=== PATIENT | male | born 1985 | race Caucasian/White ===

== ENCOUNTER 2016-12-03 16:32 | Emergency (ER) | payer MEDICAID ==
--- NOTE | 2016-12-03 16:41 | EDM.PDOC ---
ED HPI DIABETIC EMERGENCY - General Chief Complaint: Diabetic Complaint Stated Complaint: W/D POSSIBLE DKA Time Seen by Provider: 12/03/16 16:59 Source of Information: Reports: Patient, Family, RN, RN notes reviewed History Limitations: Reports: No limitations - History of Present Illness INITIAL COMMENTS - FREE TEXT/NARRATIVE: Patient arrived by POV with history of nausea, vomiting, abdominal pain. Reports possible DKA and heroin/methadone withdrawal for 3 days duration. Patient is from [place]. No medical history locally available per medical records. Denies fever, but admits to chills and sweats. - Related Data Allergies/ADRs: Allergies Allergy/AdvReac Type Severity Reaction Status Date / Time No Known Allergies Allergy Verified 12/03/16 18:08 Home Meds: Home Meds Insulin Aspart [NovoLOG] 25 units SQ TID 12/03/16 [History] Insulin Glarg,Human.Rec.Analog [Lantus] 45 units SQ DAILY 12/03/16 [History] Past Medical History Psychiatric History: Reports: Addiction (heroin/opiates/methadone) Endocrine/Metabolic History: Reports: Diabetes, type I, Other (see below) (DKA) Social & Family History - Family History Psychiatric: Reports: Suicide attempt (patient's mother of polysubstance overdose/suicide one week ago.), Other (see below) (multuiple family members with polysubstance abuse.) ED ROS GENERAL - Review of Systems Review Of Systems: ROS reveals no pertinent complaints other than HPI. ED EXAM GENERAL NO PERIP PULSE - Physical Exam Exam: See Below Exam Limited By: No limitations General Appearance: other (acute and chronically ill appearing. Thin.) Eye Exam: bilateral eye: normal inspection Ears: normal external exam, normal canal, hearing grossly normal, normal TMs Nose: normal inspection, normal mucosa, no blood Throat/Mouth: Other (dry oral membranes, otherwise normal.) Head: atraumatic, normocephalic Neck: normal inspection, supple, non-tender, full range of motion Respiratory/Chest: no respiratory distress, lungs clear, normal breath sounds, no accessory muscle use, chest non-tender Cardiovascular: tachycardia (regular) GI/Abdominal: tender (epigastric tenderness) (Male) Exam: Deferred Rectal (Males) Exam: Deferred Back Exam: normal inspection, full range of motion, NT Extremities: normal inspection, normal range of motion, non-tender, normal capillary refill, no pedal edema Neurological: other (mild tremor) Psychiatric: anxious Skin Exam: Other (cool, pale, dry and extensive needle track [place]. ) EKG INTERPRETATION EKG Date: 12/03/16 Time: 17:03 Rhythm: other (sinus tachycardia) Rate (beats/min): 112 [place]: normal P-wave: present QRS: other (right atrial enlargement) ST-T: other (ST elevation probable normal early repolarization pattern.) QT: normal Comparison: NA - no prior EKG Course - Vital Signs Last Recorded V/S: Last Vital Signs Temp 37.3 C 12/03/16 18:16 Pulse 104 H 12/03/16 18:16 Resp 18 12/03/16 18:16 BP 162/86 H 12/03/16 18:16 Pulse Ox 100 12/03/16 18:16 - Orders/Labs/Meds Orders: Active Orders 24 hr Category Date Time Status EKG 12 Lead [EKG Documentation Completion] [] STAT Care 12/03/16 16:55 Active Peripheral IV Care [RC] . DIRECTED Care 12/03/16 16:55 Active Peripheral IV Care [RC] . DIRECTED Care 12/03/16 16:57 Active CULTURE BLOOD [BC] Stat Lab 12/03/16 18:06 Results CULTURE BLOOD [] Stat Lab 12/03/16 18:15 Received Insulin Regular, Human [NovoLIN R] 100 unit Med 12/03/16 17:15 Active Sodium Chloride 0.9% [Normal Saline] 99 ml IV TITRATE Sodium Chloride 0.9% [Normal Saline] 1,000 ml Med 12/03/16 18:27 Active IV .BOLUS Sodium Chloride 0.9% [Saline Flush] Med 12/03/16 16:55 Active 10 ml FLUSH ASDIRECTED PRN Sodium Chloride 0.9% [Saline Flush] Med 12/03/16 16:56 Active 10 ml FLUSH ASDIRECTED PRN Blood Culture x2 Reflex Set [OM.PC] Stat Oth 12/03/16 16:55 Ordered Peripheral IV Insertion Adult [OM.PC] Stat Oth 12/03/16 16:54 Ordered Peripheral IV Insertion Adult [OM.PC] Stat Oth 12/03/16 16:56 Ordered Medication Orders Insulin Human Regular 100 unit (/ Sodium Chloride) 100 mls @ 7 mls/hr IV TITRATE MARV; 7 UNITS/HR PRN Reason: Protocol Last Admin: 12/03/16 17:50 Dose: 7 units/hr, 7 mls/hr Sodium Chloride (Normal Saline) 1,000 mls @ 200 mls/hr IV .BOLUS ONE Stop: 12/03/16 23:26 Last Admin: 12/03/16 18:52 Dose: 200 mls/hr Sodium Chloride (Saline Flush) 10 ml FLUSH ASDIRECTED PRN PRN Reason: Keep Vein Open Last Admin: 12/03/16 17:17 Dose: 10 ml Sodium Chloride (Saline Flush) 10 ml FLUSH ASDIRECTED PRN PRN Reason: Keep Vein Open Last Admin: 12/03/16 17:28 Dose: 10 ml Labs: Laboratory Tests 12/03/16 12/03/16 12/03/16 Range/Units 16:40 17:00 17:00 WBC 19.4 H (5.0-10.0) 10^3/uL RBC 4.77 (4.6-6.2) 10^6/uL Hgb 14.3 (14.0-18.0) g/dL Hct 41.5 (40.0-54.0) % MCV 87.0 (80-100) fL MCH 30.0 (27.0-34.0) pg MCHC 34.5 (33.0-35.0) g/dL Plt Count 418 (150-450) 10^3/uL Neut % (Auto) 90.7 H (42.2-75.2) % Lymph % (Auto) 6.1 L (20.5-50.1) % [place] % (Auto) 3.1 (2-8) % Eos % (Auto) 0.0 L (1.0-3.0) % Baso % (Auto) 0.1 (0.0-1.0) % ABG pH (7.35-7.45) ABG pCO2 (35-45) mmHg ABG pO2 (70-100) mmHg ABG HCO3 (22-26) mmol/L ABG O2 Saturation (95-100) % ABG Base Excess ((-2)-(+3)) mmol/L Iain Test O2 Delivery Device Sodium 120 L (135-145) mmol/L Potassium 4.6 (3.6-5.0) mmol/L Chloride 78 L (101-111) mmol/L Carbon Dioxide 11.0 L (21.0-31.0) mmol/L Anion Gap 35.6 BUN 41 H (7-18) mg/dL Creatinine 1.4 H (0.6-1.3) mg/dL Est Cr Clr Drug Dosing 81.67 mL/min Estimated GFR (MDRD) 60 BUN/Creatinine Ratio 29.28 Glucose 757 H* (74-105) mg/dL POC Glucose > 500 H* (70-105) mg/dl Lactic Acid (0.5-2.2) mmol/L Calcium 8.6 (8.4-10.2) mg/dl Phosphorus 5.1 H (2.5-4.6) mg/dL Magnesium 1.8 (1.8-2.5) mg/dL Total Bilirubin 1.3 H (0.2-1.0) mg/dL AST 42 (10-42) IU/L ALT 49 (10-60) IU/L Alkaline Phosphatase 179 H (42-121) IU/L Creatine Kinase (26-174) IU/L Creatine Kinase Index (0-2.4) % CK-MB (CK-2) (0.4-4.7) ng/mL Troponin I < 0.02 (0.00-0.02) ng/ml Total Protein 7.5 (6.7-8.2) g/dl Albumin 3.9 (3.2-5.5) g/dl Globulin 3.6 Albumin/Globulin Ratio 1.08 Amylase 22 L (28-100) U/L Lipase 28 (22-51) U/L Urine Color (YELLOW) Urine Appearance (CLEAR) Urine pH (5.0-9.0) Ur Specific [place] (1.005-1.030) Urine Protein (NEGATIVE) Urine Glucose (UA) (NEGATIVE) Urine Ketones (NEGATIVE) Urine Occult Blood (NEGATIVE) Urine Nitrite (NEGATIVE) Urine Bilirubin (NEGATIVE) Urine Urobilinogen (0.2-1.0) mg/dL Ur Leukocyte Esterase (NEGATIVE) Urine RBC /HPF Urine WBC (0-5/HPF) /HPF Ur Epithelial Cells /HPF Urine Bacteria (0-FEW/HPF) /HPF Urine Opiates Screen (NEGATIVE) Ur Oxycodone Screen (NEGATIVE) Urine Methadone Screen (NEGATIVE) Ur Barbiturates Screen (NEGATIVE) U Tricyclic Antidepress (NEGATIVE) Ur Phencyclidine Scrn (NEGATIVE) Ur Amphetamine Screen (NEGATIVE) U Methamphetamines Scrn (NEGATIVE) Urine MDMA Screen (NEGATIVE) U Benzodiazepines Scrn (NEGATIVE) Urine Cocaine Screen (NEGATIVE) U Marijuana (THC) Screen (NEGATIVE) Ethyl Alcohol < 5 mg/dL Ketones Positive 12/03/16 12/03/16 12/03/16 Range/Units 17:00 17:10 17:10 WBC (5.0-10.0) 10^3/uL RBC (4.6-6.2) 10^6/uL Hgb (14.0-18.0) g/dL Hct (40.0-54.0) % MCV (80-100) fL MCH (27.0-34.0) pg MCHC (33.0-35.0) g/dL Plt Count (150-450) 10^3/uL Neut % (Auto) (42.2-75.2) % Lymph % (Auto) (20.5-50.1) % [place] % (Auto) (2-8) % Eos % (Auto) (1.0-3.0) % Baso % (Auto) (0.0-1.0) % ABG pH (7.35-7.45) ABG pCO2 (35-45) mmHg ABG pO2 (70-100) mmHg ABG HCO3 (22-26) mmol/L ABG O2 Saturation (95-100) % ABG Base Excess ((-2)-(+3)) mmol/L Iain Test O2 Delivery Device Sodium (135-145) mmol/L Potassium (3.6-5.0) mmol/L Chloride (101-111) mmol/L Carbon Dioxide (21.0-31.0) mmol/L Anion Gap BUN (7-18) mg/dL Creatinine (0.6-1.3) mg/dL Est Cr Clr Drug Dosing mL/min Estimated GFR (MDRD) BUN/Creatinine Ratio Glucose (74-105) mg/dL POC Glucose (70-105) mg/dl Lactic Acid (0.5-2.2) mmol/L Calcium (8.4-10.2) mg/dl Phosphorus (2.5-4.6) mg/dL Magnesium (1.8-2.5) mg/dL Total Bilirubin (0.2-1.0) mg/dL AST (10-42) IU/L ALT (10-60) IU/L Alkaline Phosphatase (42-121) IU/L Creatine Kinase 58 (26-174) IU/L Creatine Kinase Index 3.1 H (0-2.4) % CK-MB (CK-2) 1.80 (0.4-4.7) ng/mL Troponin I (0.00-0.02) ng/ml Total Protein (6.7-8.2) g/dl Albumin (3.2-5.5) g/dl Globulin Albumin/Globulin Ratio Amylase (28-100) U/L Lipase (22-51) U/L Urine Color Yellow (YELLOW) Urine Appearance Clear (CLEAR) Urine pH 5.0 (5.0-9.0) Ur Specific [place] 1.010 (1.005-1.030) Urine Protein Negative (NEGATIVE) Urine Glucose (UA) 500 H (NEGATIVE) Urine Ketones 80 H (NEGATIVE) Urine Occult Blood Negative (NEGATIVE) Urine Nitrite Negative (NEGATIVE) Urine Bilirubin Negative (NEGATIVE) Urine Urobilinogen 0.2 (0.2-1.0) mg/dL Ur Leukocyte Esterase Negative (NEGATIVE) Urine RBC 0-5 /HPF Urine WBC 0-5 (0-5/HPF) /HPF Ur Epithelial Cells Rare /HPF Urine Bacteria Rare (0-FEW/HPF) /HPF Urine Opiates Screen Positive H (NEGATIVE) Ur Oxycodone Screen Negative (NEGATIVE) Urine Methadone Screen Negative (NEGATIVE) Ur Barbiturates Screen Negative (NEGATIVE) U Tricyclic Antidepress Negative (NEGATIVE) Ur Phencyclidine Scrn Negative (NEGATIVE) Ur Amphetamine Screen Negative (NEGATIVE) U Methamphetamines Scrn Negative (NEGATIVE) Urine MDMA Screen Negative (NEGATIVE) U Benzodiazepines Scrn Negative (NEGATIVE) Urine Cocaine Screen Negative (NEGATIVE) U Marijuana (THC) Screen Negative (NEGATIVE) Ethyl Alcohol mg/dL Ketones 12/03/16 12/03/16 Range/Units 17:16 18:06 WBC (5.0-10.0) 10^3/uL RBC (4.6-6.2) 10^6/uL Hgb (14.0-18.0) g/dL Hct (40.0-54.0) % MCV (80-100) fL MCH (27.0-34.0) pg MCHC (33.0-35.0) g/dL Plt Count (150-450) 10^3/uL Neut % (Auto) (42.2-75.2) % Lymph % (Auto) (20.5-50.1) % [place] % (Auto) (2-8) % Eos % (Auto) (1.0-3.0) % Baso % (Auto) (0.0-1.0) % ABG pH 7.38 (7.35-7.45) ABG pCO2 18 L* (35-45) mmHg ABG pO2 105 H (70-100) mmHg ABG HCO3 10.5 L (22-26) mmol/L ABG O2 Saturation 98 (95-100) % ABG Base Excess -13 L ((-2)-(+3)) mmol/L Iain Test Positive O2 Delivery Device Room air Sodium (135-145) mmol/L Potassium (3.6-5.0) mmol/L Chloride (101-111) mmol/L Carbon Dioxide (21.0-31.0) mmol/L Anion Gap BUN (7-18) mg/dL Creatinine (0.6-1.3) mg/dL Est Cr Clr Drug Dosing mL/min Estimated GFR (MDRD) BUN/Creatinine Ratio Glucose (74-105) mg/dL POC Glucose (70-105) mg/dl Lactic Acid 3.8 H (0.5-2.2) mmol/L Calcium (8.4-10.2) mg/dl Phosphorus (2.5-4.6) mg/dL Magnesium (1.8-2.5) mg/dL Total Bilirubin (0.2-1.0) mg/dL AST (10-42) IU/L ALT (10-60) IU/L Alkaline Phosphatase (42-121) IU/L Creatine Kinase (26-174) IU/L Creatine Kinase Index (0-2.4) % CK-MB (CK-2) (0.4-4.7) ng/mL Troponin I (0.00-0.02) ng/ml Total Protein (6.7-8.2) g/dl Albumin (3.2-5.5) g/dl Globulin Albumin/Globulin Ratio Amylase (28-100) U/L Lipase (22-51) U/L Urine Color (YELLOW) Urine Appearance (CLEAR) Urine pH (5.0-9.0) Ur Specific [place] (1.005-1.030) Urine Protein (NEGATIVE) Urine Glucose (UA) (NEGATIVE) Urine Ketones (NEGATIVE) Urine Occult Blood (NEGATIVE) Urine Nitrite (NEGATIVE) Urine Bilirubin (NEGATIVE) Urine Urobilinogen (0.2-1.0) mg/dL Ur Leukocyte Esterase (NEGATIVE) Urine RBC /HPF Urine WBC (0-5/HPF) /HPF Ur Epithelial Cells /HPF Urine Bacteria (0-FEW/HPF) /HPF Urine Opiates Screen (NEGATIVE) Ur Oxycodone Screen (NEGATIVE) Urine Methadone Screen (NEGATIVE) Ur Barbiturates Screen (NEGATIVE) U Tricyclic Antidepress (NEGATIVE) Ur Phencyclidine Scrn (NEGATIVE) Ur Amphetamine Screen (NEGATIVE) U Methamphetamines Scrn (NEGATIVE) Urine MDMA Screen (NEGATIVE) U Benzodiazepines Scrn (NEGATIVE) Urine Cocaine Screen (NEGATIVE) U Marijuana (THC) Screen (NEGATIVE) Ethyl Alcohol mg/dL Ketones 1815 Glucose 757. K 4.6. Sodium 120. Meds: Medications Generic Name Dose Route Start Last Admin Trade Name Freq PRN Reason Stop Dose Admin Insulin Human Regular 100 unit 100 mls @ 7 mls/hr 12/03/16 17:15 12/03/16 17: 50 / Sodium Chloride IV 7 units/hr TITRATE MARV 7 mls/hr Protocol Administration 7 UNITS/HR Sodium Chloride 1,000 mls @ 200 mls/hr 12/03/16 18:27 12/03/16 18:52 Normal Saline IV 12/03/16 23:26 200 mls/hr .BOLUS ONE Administration Sodium Chloride 10 ml 12/03/16 16:55 12/03/16 17:17 Saline Flush FLUSH 10 ml ASDIRECTED PRN Administration Keep Vein Open Sodium Chloride 10 ml 12/03/16 16:56 12/03/16 17:28 Saline Flush FLUSH 10 ml ASDIRECTED PRN Administration Keep Vein Open Discontinued Medications Generic Name Dose Route Start Last Admin Trade Name Freq PRN Reason Stop Dose Admin Diphenhydramine HCl 25 mg 12/03/16 18:28 12/03/16 18:49 Benadryl IVPUSH 12/03/16 18:29 25 mg ONETIME ONE Administration Sodium Chloride 1,000 mls @ 999 mls/hr 12/03/16 17:08 12/03/16 17:16 Normal Saline IV 12/03/16 18:08 999 mls/hr .BOLUS ONE Administration Sodium Chloride 1,000 mls @ 999 mls/hr 12/03/16 17:09 12/03/16 17:27 Normal Saline IV 12/03/16 18:09 999 mls/hr .BOLUS ONE Administration Insulin Human Regular 7 unit 12/03/16 16:59 12/03/16 17:33 Novolin R IVPUSH 12/03/16 17:00 7 units ONETIME ONE Administration Protocol Lorazepam 1 mg 12/03/16 18:28 12/03/16 18:46 Ativan IVPUSH 12/03/16 18:29 1 mg ONETIME ONE Administration Metoclopramide HCl 10 mg 12/03/16 18:28 12/03/16 18:50 Reglan IVPUSH 12/03/16 18:29 10 mg ONETIME ONE Administration Morphine Sulfate 4 mg 12/03/16 17:40 12/03/16 17:58 Morphine IVPUSH 12/03/16 17:41 4 mg ONETIME ONE Administration Ondansetron HCl 4 mg 12/03/16 17:39 12/03/16 17:57 Zofran IV 12/03/16 17:40 4 mg ONETIME ONE Administration Departure - Departure Time of Disposition: 18:19 Disposition: DC/Tfer to Acute Hospital 02 Condition: critical Clinical Impression: Heroin addiction, Heroin withdrawal Diabetic ketoacidosis associated with type 1 diabetes mellitus Qualifiers: Diabetes mellitus complication detail: without coma Qualified Code(s): E10.10 - Type 1 diabetes mellitus with ketoacidosis without coma Forms: ED Department Discharge, Interfacility Transfer EMTALA - My Orders Last 24 Hours: My Active Orders 12/03/16 16:54 Peripheral IV Insertion Adult [OM.PC] Stat 12/03/16 16:55 EKG 12 Lead [EKG Documentation Completion] [RC] STAT Peripheral IV Care [RC] . DIRECTED Sodium Chloride 0.9% [Saline Flush] 10 ml FLUSH ASDIRECTED PRN Blood Culture x2 Reflex Set [OM.PC] Stat 12/03/16 16:56 Sodium Chloride 0.9% [Saline Flush] 10 ml FLUSH ASDIRECTED PRN Peripheral IV Insertion Adult [OM.PC] Stat 12/03/16 16:57 Peripheral IV Care [RC] . DIRECTED 12/03/16 17:15 Insulin Regular, Human [NovoLIN R] 100 unit Sodium Chloride 0.9% [Normal Saline] 99 ml IV TITRATE 12/03/16 18:06 CULTURE BLOOD [BC] Stat 12/03/16 18:15 CULTURE BLOOD [BC] Stat 12/03/16 18:27 Sodium Chloride 0.9% [Normal Saline] 1,000 ml IV .BOLUS - Assessment/Plan Last 24 Hours: My Active Orders 12/03/16 16:54 Peripheral IV Insertion Adult [OM.PC] Stat 12/03/16 16:55 EKG 12 Lead [EKG Documentation Completion] [RC] STAT Peripheral IV Care [RC] . DIRECTED Sodium Chloride 0.9% [Saline Flush] 10 ml FLUSH ASDIRECTED PRN Blood Culture x2 Reflex Set [OM.PC] Stat 12/03/16 16:56 Sodium Chloride 0.9% [Saline Flush] 10 ml FLUSH ASDIRECTED PRN Peripheral IV Insertion Adult [OM.PC] Stat 12/03/16 16:57 Peripheral IV Care [RC] . DIRECTED 12/03/16 17:15 Insulin Regular, Human [NovoLIN R] 100 unit Sodium Chloride 0.9% [Normal Saline] 99 ml IV TITRATE 12/03/16 18:06 CULTURE BLOOD [BC] Stat 12/03/16 18:15 CULTURE BLOOD [BC] Stat 12/03/16 18:27 Sodium Chloride 0.9% [Normal Saline] 1,000 ml IV .BOLUS
[2016-12-03] MEDS ORDERED: Sodium Chloride 0.9% 10 ML Syringe FLUSH PRN ×2 (16:55→16:56)
[2016-12-03] MEDS ORDERED: Insulin Regular, Human 100 Units/ML 10 ML Vial IVPUSH ONE (16:59)
[2016-12-03] MEDS ORDERED: Sodium Chloride 0.9% 1,000 ML IV ONE ×3 (17:08→18:27)
[2016-12-03 17:20] LABS: BASE EXCESS ARTERIAL -13 mmol/L ((-2)-(+3)); BICARBONATE,ARTERIAL 10.5 mmol/L (22-26); O2 DELIVERY DEVICE ROOM AIR; O2 SATURATION ARTERIAL 98 % (95-100); PO2 ARTERIAL 105 mmHg (70-100)
[2016-12-03 17:23] LABS: ALLEN TEST POSITIVE; PCO2 ARTERIAL 18 mmHg (35-45)
[2016-12-03] MEDS ORDERED: Ondansetron 4 MG/2 ML SDV IV ONE (17:39)
[2016-12-03] MEDS ORDERED: Morphine 4 MG/ML Syringe IVPUSH ONE (17:40)
[2016-12-03 17:49] LABS: CHLORIDE,CL 78 mmol/L (101-111)
[2016-12-03 18:16] LABS: SODIUM,NA 120 mmol/L (135-145)
[2016-12-03] MEDS ORDERED: LORazepam 2 MG/ML Syringe IVPUSH ONE (18:28)
[2016-12-03] MEDS ORDERED: Metoclopramide 10 MG/2 ML SDV IVPUSH ONE (18:28)
[2016-12-03] MEDS ORDERED: diphenhydrAMINE 50 MG/ML SDV IVPUSH ONE (18:28)
[2016-12-03] MEDS ORDERED: Acetaminophen 325 MG Tab PO ONE (19:39)
[2016-12-03 20:50] VITALS: BP 151/78
--- NOTE | 2016-12-05 08:23 | EKG ---
12/03/2016- PAULA GAYLE - EKG done on a 30-year-old male, showing sinus tachycardia with heart rate of 112 beats per minute; no acute ST T wave changes. [facility] /[id number] MTDD
== END 2016-12-03 21:04 ==
LOC: DL.ED 16:32
DX: E10.10 Type 1 diabetes mellitus with ketoacidosis without coma (principal); F11.23 Opioid dependence with withdrawal; Z79.4 Long term (current) use of insulin
CPT/HCPCS: 36415; 36600; 80053; 80305; 81001; 82009; 82150; 82550; 82553; 82803; 82962; 83605; 83690; 83735; 84100; 84484; 85025; 87040; 93005; 93010; 96361; 96365; 96375; 96376; 99284; A9270; G0480; J1200; J1815; J2060; J2270; J2405; J2765; J7030; J7050